=== PATIENT | male | born 1955 | race Caucasian/White ===

== ENCOUNTER → 2019-09-11 09:09 | Outpatient (BNVA) | payer BC, SELFPAY | PROVIDERS: Referring Provider Nurse Practitioner Family; Visit Provider Otolaryngology | DX: H90.A12 Conductive hearing loss, unilateral, left ear with restricted hearing on the contralateral side (principal); H66.92 Otitis media, unspecified, left ear; H65.02 Acute serous otitis media, left ear; J34.2 Deviated nasal septum | CPT/HCPCS: 96372; 99214 ==

== ENCOUNTER 2019-09-19 06:35 | Outpatient (REF) | payer BC, SELFPAY ==
[2019-09-19 09:41] LABS: Estmated Average Glucose 148; Hemoglobin A1C 6.8 % (4.0-6.0)
[2019-09-19 11:09] LABS: Chol HDL Ratio 4.32 mg/dL (1.0-5.00); Cholesterol 216 mg/dL (0-200); Glucose 116 mg/dL (65-115); HDL Cholesterol 50 mg/dL (60-100); LDL Cholesterol Calculated 143 mg/dL (50-129); LDL HDL Ratio 2.86 RATIO (0.00-3.22); Triglycerides 113 mg/dL (0-150)
== END 2019-09-19 06:36 | disposition home or self-care (01) ==
LOC: LAB 06:35
PROVIDERS: Visit Provider Dermatology
DX: Z01.89 Encounter for other specified special examinations (principal)
CPT/HCPCS: 80061; 82947; 83036

== ENCOUNTER 2021-11-25 09:31 | Outpatient (CLI) | payer MEDICARE, SELFPAY ==
--- NOTE | 2021-11-25 09:54 | XR_ITS ---
WS: [id number] AP and lateral views of the neck, 11/25/2021 Clinical Data: THROAT IRRITATION Comparison: None. Findings: There is osteoarthritic change of the vertebral bodies C3-T1. The spurring is largest at C5-C6. The h ypopharynx and proximal trachea show no abnormalities. The hyoid bone and thyroid cartilage are waqar l. The soft tissues of the neck demonstrate minimal calcification in the region of the left carotid b ifurcation. The lung apices are normal. XR/XR soft tissue neck [id number] Impression: 1. Prominent osteoarthritic change especially at C5-C6. 2. No soft tissue masses or deformity of the hypopharynx or proximal trachea is seen.
== END 2021-11-25 09:32 | disposition home or self-care (01) ==
LOC: RAD 09:40
PROVIDERS: Visit Provider Nurse Practitioner Family
DX: R07.0 Pain in throat (principal)
CPT/HCPCS: 70360

== ENCOUNTER 2022-08-08 09:54 | Observation (INO) | payer MEDICARE, SELFPAY ==
[2022-08-08] VITALS (14 sets, daily range): BP systolic 119–173; BP diastolic 57–92; PULSE 56–88; RESP 13–30; TEMP 36.5–36.8; O2SAT 94–98; BMI 30.1
--- NOTE | 2022-08-08 10:17 | ECG_ITS ---
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 Measurements Intervals [place] Rate: 73 P: 37 MO: 134 QRS: 11 QRSD: 157 T: 260 QT: 376 QTc: 417 Interpretive Statements SINUS RHYTHM WITH FREQUENT VENTRICULAR PREMATURE COMPLEXES LEFT BUNDLE BRANCH BLOCK [120+ ms QRS DURATION, 80+ ms Q/S IN V1/V2, 85+ ms R IN I/aVL/V5/V6] INTERPRETATION BASED ON A DEFAULT AGE OF 40 YEARS No previous ECG available for comparison Electronically Signed On 08-08-2022 14:10:50 KEY MAKER by Errol Muir M.D. [email or web address] medical specialty hospital [facility].[employer]/store/NU/[id number] f
--- NOTE | 2022-08-08 11:22 | CT_ITS ---
WS: [id number] CT HEAD TECHNIQUE: Noncontrast CT of the head obtained from the skullbase to the vertex. CLINICAL INFORMATION: visual loss COMPARISON: None. DLP: 1153.[address] scans at [facility] use at least one of these dose optimization techniques: automated e xposure control; mA and/or kV adjustment per patient size (includes targeted exams where dose is matc hed to clinical indication); or iterative reconstruction. FINDINGS: No evidence of intracranial hemorrhage or mass effect. Ventricular system and basal cisterns are jenkins nt. Mild to moderate small vessel changes with mild to moderate parenchymal volume loss. No extra-ax ial fluid collections. No evidence of mass or mass effect. Mild cerebellar tonsillar ectopia. Normal 4th ventricle. Small amount of fluid in the LEFT maxillary sinus compatible with sinusitis. Mild mucosal thickening in the ethmoid air cells and LEFT maxillary sinus. Mild mucosal thickening LEFT mastoid tip. Normal p osterior nasopharynx. Normal parapharyngeal fat. CT/CT head wo con* [id number] IMPRESSION: 1. No evidence of intracranial hemorrhage or mass effect. 2. Mild small vessel changes. Moderate parenchymal volume loss. 3. LEFT maxillary sinusitis. 4. No acute intracranial findings.
--- NOTE | 2022-08-08 11:22 | XR_ITS ---
WS: [id number] Portable AP upright chest, 08/08/2022 Clinical Data: chest pain Comparison: None. Findings: No nodules, masses or effusions are seen. The heart is normal. The pulmonary vascularity is not increased. No pneumonia or pneumothorax is seen. The aortic arch and descending thoracic aorta s how tortuosity. Monitor leads are on the chest wall. XR/XR chest 1V portable [id number] Impression: Atherosclerosis.
--- NOTE | 2022-08-08 11:28 | W.ED.DIZZY ---
HPI - Dizziness General: Chief Complaint: Dizziness Stated Complaint: Dizzy, Vision blurring Time Seen by Provider: 08/08/22 11:07 History of Present Illness: HPI Narrative: Patient is a 66-year-old male who comes in with blurry vision that started this morning around 4 AM. Patient states he initially woke up with what he thought was heartburn. He describes a burning/dull ache in the left parasternal area of his chest radiating into his throat. He thought it was heartburn. That pain lasted a couple of hours. He took antacids with improvement. In association with this, he did have dizziness which he felt was a lightheaded near fainting sensation with associated visual loss. He states his vision became spotty, then rainbow in appearance and then became dark. The visual loss lasted about 2 hours. He continued to have the lightheadedness and shortness of breath for about 6 hours. He states currently he is pain-free. He describes what sounds like exertional angina and shortness of breath for the past 5 to 7 days with some exertional shortness of breath going back about 2 months. The patient does have a history of COPD, congestive heart failure, diabetes, hypertension, hyperlipidemia, previous pulmonary embolism and DVT. Patient is not a smoker currently but did smoke in the past. He takes a baby aspirin daily and is not currently anticoagulated. He states he had his last stress test about a year and a half ago. His last angiogram was about 8 years ago in [facility]. He denies having any stents or previous angioplasty. Associated symptoms: Reports chest pain and palpitations; Denies headache(s) Associated neuro symptoms: Deny numbness in extremities Review of Systems General: Reports: 10 or more systems reviewed and unremarkable except in HPI and below Eyes: Reports: change in vision and blurry vision Card: Reports: chest pain, palpitations, lightheadedness, dyspnea on exertion and orthopnea; Denies: edema or swelling of feet/ankles Musc: Denies: extremity pain or extremity swelling Neuro: Reports: dizziness; Denies: headache(s), numbness in extremities, weakness in extremities, sensory changes, lack of coordination, difficulty walking, vertigo or Slurred speech present [facility] ED PFSH: Medical History (Updated 08/08/22 @ 14:43 by Cherry Lanier MD) Acute serous otitis media of left ear Conductive hearing loss in left ear Deviated septum Family History Other Cancer Diabetes Social History Smoking and tobacco status: former smoker Alcohol intake: former Physical Exam Narrative: EXAM NARRATIVE: Well-developed well-nourished male in no acute distress Const: COMMON NORMALS: no acute distress and patient oriented x3 HENMT: COMMON NORMALS: normocephalic HEAD & SCALP: normal to inspection and normocephalic Eye: COMMON NORMALS: Equal, round and reactive pupils present and EOMs intact bilaterally PUPIL: Yes Equal, round and reactive pupils present Neck/C-Spine: COMMON NORMALS: no lymphadenopathy Resp: COMMON NORMALS: normal respiratory effort, No retractions and clear to auscultation bilaterally AUSCULTATION: clear to auscultation bilaterally Cardio: COMMON NORMALS: regular rate and regular rhythm; negative for No murmurs present (Cardio) RATE: regular rate RHYTHM: regular rhythm GI: COMMON NORMALS: Normal to inspection, nondistended, normoactive bowel sounds present, Soft to palpation and non-tender PALPATION: Yes Soft to palpation Extremity: OTHER: No swelling or edema. Calves are nontender. Negative Homans bilaterally Neuro: COMMON NORMALS: patient oriented x3, CN's II-XII intact bilaterally, moves all extremities, no focal motor deficits and no sensory deficits noted Skin: OTHER: Venous stasis changes of the skin of the lower extremities bilaterally Course Reevaluation(s): Reevaluation #1: patient remains asymptomatic. Discussed test results with the patient. Discussed need for the patient to be admitted. Patient is in agreement. Consultations: Consultation #1: Discussed with the hospitalist for admission Time: 15:49 Vital Signs: Vital signs: Vital Signs Temperature 97.7 F 08/08/22 10:01 Pulse Rate 66 08/08/22 15:00 Respiratory Rate 18 08/08/22 15:00 Blood Pressure 133/57 08/08/22 15:00 Pulse Oximetry 95 08/08/22 15:00 Oxygen Delivery Me thod 08/08/22 15:00 MDM - Dizziness Medical Decision Making 66-year-old male with a history of diabetes, hypertension, hyperlipidemia who presents with shortness of breath with exertion as well as now onset of chest pain. Patient is afebrile. He does have a left bundle branch block and frequent PVCs on his EKG. I have no old KG's for comparison. He is pain-free upon arrival. Today he had a near syncopal episode with associated visual changes. Is been having shortness of breath and chest pain with exertion which now is occurring at rest. Given his age, his multitude of risk factors, I feel the patient needs to be admitted for a cardiac work-up. He does have a leukocytosis today with a white blood cell count of 15.5. Hemoglobin stable at 15.9. Sodium is 135, potassium 4.2, chloride 98, CO2 is 26. Does have a d dimer that is elevated at 2.25. CT arteriogram of the chest has been obtained. Glucose is 124. BUN and creatinine are normal. BNP is elevated at 287. His initial troponin is 12. Repeat 2-hour troponin is 12.62. He is COVID-negative as well as influenza negative. His chest x-ray shows no acute findings. On his CT arteriogram of the chest, he has no pulmonary embolism but he does have a right upper lobe infiltrate which certainly could be contributing to his symptoms but still of concern is the exertional chest pain or shortness of breath that he has been having over the past month. Feel the patient needs admission for cardiac work-up and will discuss with the hospitalist. Differential Diagnosis Likely cerebrovascular accident (angina, MN, PE, GERD, pneumonia) Lab Data 08/08/22 11:47 08/08/22 11:47 Radiology Impressions Chest X-Ray 08/08/22 11:22 Impression: Atherosclerosis. Head CT 08/08/22 11:22 IMPRESSION: 1. No evidence of intracranial hemorrhage or mass effect. 2. Mild small vessel changes. Moderate parenchymal volume loss. 3. LEFT maxillary sinusitis. 4. No acute intracranial findings. Chest CTA 08/08/22 12:35 IMPRESSION: 1. Proximal main pulmonary arteries are normal. No filling defects. No evidence of pulmonary embolus. 2. Patchy airspace infiltrates in RIGHT upper lobe about the RIGHT hilum consistent with pneumonia. 3. Small esophageal hiatal hernia. 4. Cardiomegaly. 5. Cholecystectomy. 6. Slightly ectatic aortic arch measuring 3.7 CM. 7. No other acute findings. Laboratory Results WBC 15.5 10^3/uL (4.0-10.0) H 08/08/22 11:47 RBC 4.96 10^6/uL (4.1-5.3) 08/08/22 11:47 Hgb 15.9 g/dL (11.7-16.6) 08/08/22 11:47 Hct 46.6 % (42.0-52.0) 08/08/22 11:47 MCV 94.0 fl (80-94) 08/08/22 11:47 MCH 32.1 pg (28.0-34.0) 08/08/22 11:47 MCHC 34.1 g/dL (30.0-36.0) 08/08/22 11:47 RDW 13.5 % (12.1-15.1) 08/08/22 11:47 Plt Count 143 10^3/cmm (130-400) 08/08/22 11:47 MPV 10.6 fL (7.4-10.4) H 08/08/22 11:47 Neut % (Auto) 85.1 % 08/08/22 11:47 Lymph % (Auto) 6.7 % 08/08/22 11:47 Grant % (Auto) 7.1 % 08/08/22 11:47 Eos % (Auto) 0.4 % 08/08/22 11:47 Baso % (Auto) 0.3 % 08/08/22 11:47 Neut # (Auto) 13.17 10^3/uL (1.8-7.7) H 08/08/22 11:47 Lymph # (Auto) 1.0 10^3/uL (0.8-4.8) 08/08/22 11:47 Grant # (Auto) 1.1 10^3/uL (0.2-0.9) H 08/08/22 11:47 Eos # (Auto) 0.1 10^3/uL (0.0-0.8) 08/08/22 11:47 Baso # (Auto) 0.0 10^3/uL (0.0-0.1) 08/08/22 11:47 Nucleated RBC % (auto) 0 % 08/08/22 11:47 Nucleated RBCs # 0.0 /100WBC 08/08/22 11:47 D-Dimer 2.25 ug/mIFEU (0-0.59) H 08/08/22 11:47 Sodium 135 mmol/L (136-145) L 08/08/22 11:47 Potassium 4.2 mmol/L (3.5-5.1) 08/08/22 11:47 Chloride 98 mmol/L (98-107) 08/08/22 11:47 Carbon Dioxide 26 mmol/L (22-29) 08/08/22 11:47 Anion Gap 15.2 (5-19) 08/08/22 11:47 BUN 17 mg/dL (8-23) 08/08/22 11:47 Creatinine 0.7 mg/dL (0.7-1.2) 08/08/22 11:47 GFR Calculation 112.5 mL/min (90-130) 08/08/22 11:47 Glucose 106 mg/dL (65-115) 08/08/22 11:47 POC Glucose 124 mg/dL (70-110) H 08/08/22 12:09 Calculated Osmolality 282 mOsm/kg (285-295) L 08/08/22 11:47 Calcium 8.9 mg/dL (8.5-10.5) 08/08/22 11:47 Magnesium 1.9 mg/dL (1.7-2.3) 08/08/22 11:47 Total Bilirubin 0.7 mg/dL (0.15-1.2) 08/08/22 11:47 AST 23 U/L (0-40) 08/08/22 11:47 ALT 26 U/L (0-41) 08/08/22 11:47 Alkaline Phosphatase 63 U/L (40-130) 08/08/22 11:47 Troponin T Baseline 12 ng/L (0-15) 08/08/22 11:47 Troponin T 120 Minute 12.62 ng/L (0-15) 08/08/22 13:55 Delta Troponin T 0.62 ABS# (0-10) 08/08/22 13:55 NT-Pro-B Natriuret Pep 287 pg/mL (0-125) H 08/08/22 11:47 Total Protein 6.9 g/dL (6.6-8.7) 08/08/22 11:47 Albumin 4.2 g/dL (3.5-5.2) 08/08/22 11:47 Globulin 2.7 g/dL (1.3-4.6) 08/08/22 11:47 Lipase 43 U/L (13-60) 08/08/22 11:47 TSH 1.02 uIU/mL (0.27-4.20) 08/08/22 11:47 Urine Color Light yellow (Yellow) 08/08/22 11:35 Urine Appearance Clear (CLEAR) 08/08/22 11:35 Urine pH 5 (5-7) 08/08/22 11:35 Ur Specific [place] 1.015 (1.005-1.030) 08/08/22 11:35 Urine Protein Neg (Negative) 08/08/22 11:35 Urine Glucose (UA) Norm (Normal) 08/08/22 11:35 Urine Ketones Negative (Negative) 08/08/22 11:35 Urine Blood 2+ (Negative) H 08/08/22 11:35 Urine Nitrate Negative (Negative) 08/08/22 11:35 Urine Bilirubin Neg (Negative) 08/08/22 11:35 Urine Urobilinogen Norm mg/dL (Negative) 08/08/22 11:35 Ur Leukocyte Esterase Negative (Negative) 08/08/22 11:35 Urine RBC 0-4 /hpf (0-2) H 08/08/22 11:35 Urine WBC None /hpf (0-5) 08/08/22 11:35 Ur Squamous Epith Cells 0-4 /hpf (0-5) H 08/08/22 11:35 Amorphous Sediment Not Reportable 08/08/22 11:35 Urine Bacteria Trace /hpf (NONE) 08/08/22 11:35 Coronavirus 229E (PCR) Not detected (NOT DETECT) 08/08/22 11:35 Human Metapneumovir PCR Not detected (NOT DETECT) 08/08/22 14:03 Influenza Type A Ag negative (Negative) 08/08/22 11:35 Influenza Type B Ag negative (Negative) 08/08/22 11:35 Entero/Rhino (PCR) Detected (NOT DETECT) A 08/08/22 14:03 SARS-CoV-2 (PCR) Not detected (NOT DETECT) 08/08/22 11:35 EKG Data EKG 1: I personally reviewed and interpreted this EKG as follows: Interpretation: Normal sinus rhythm, rate of 73, left bundle branch block, frequent PVCs Discharge Plan Discharge Patient Disposition: Admitted As Inpatient Clinical Impression: Chest pain, ALVARADO (dyspnea on exertion), Pneumonia, Near syncope, Blurred vision Condition: Stable Coding Level of Care Code ED Analytical Statistician for Chg Fwd Exam Comprehensive Medical Decision Making High Complexity
[2022-08-08] MEDS: aspirin 81 mg Chew Tablet 324 MG PO (11:29)
[2022-08-08 12:05] LABS: Influenza A by IFA negative (Negative); Influenza B by IFA negative (Negative)
[2022-08-08 12:12] LABS: Basophils % 0.3 %; Eosinophils # 0.1 10^3/uL (0.0-0.8); Eosinophils % 0.4 %; Hematocrit 46.6 % (42.0-52.0); Hemoglobin 15.9 g/dL (11.7-16.6); Lymphocytes % 6.7 %; Mean Corpuscular HGB Conc 34.1 g/dL (30.0-36.0); Mean Corpuscular Hemoglobin 32.1 pg (28.0-34.0); Mean Platelet Volume 10.6 fL (7.4-10.4); Monocytes # 1.1 10^3/uL (0.2-0.9); Monocytes % 7.1 %; Neutrophils # 13.17 10^3/uL (1.8-7.7); Neutrophils % 85.1 %; Nucleated Red Blood Cells % 0 %; Platelet Count 143 10^3/cmm (130-400); Red Blood Count 4.96 10^6/uL (4.1-5.3); Red Cell Distribution Width 13.5 % (12.1-15.1); White Blood Count 15.5 10^3/uL (4.0-10.0)
[2022-08-08 12:13] LABS: Glucose Point of Care 124 mg/dL (70-110)
[2022-08-08 12:26] LABS: D Dimer 2.25 ug/mIFEU (0-0.59)
[2022-08-08 12:31] LABS: Add Urine Microscopic? YES; Bilirubin Urine Neg (Negative); Blood Urine 2+ (Negative); Glucose Urine UA Norm (Normal); Ketones Urine Negative (Negative); Leukocyte Esterase Urine Negative (Negative); Nitrate Urine Negative (Negative); Protein Urine Neg (Negative); RBC Urine 0-4 /hpf (0-2); Specific Gravity, Urine 1.015 (1.005-1.030); Urine Appearance Clear (CLEAR); Urine Color Light yellow (Yellow); Urobilinogen Urine Norm (Negative); pH Urine 5 (5-7)
[2022-08-08 12:32] LABS: Add Urine Culture? No; Bacteria Urine TRACE /hpf; Squamous Epithelial Cell Urine 0-4 /hpf (0-5)
--- NOTE | 2022-08-08 12:35 | CT_ITS ---
WS: [id number] CTA OF THE CHEST WITH PULMONARY EMBOLISM PROTOCOL TECHNIQUE: High-resolution contrast enhanced CTA of the chest with coronal and sagittal reformatted i lailas with pulmonary embolism protocol. MIP images are also reviewed. CLINICAL INFORMATION: chest pain elevated d dimer COMPARISON: None. DLP: 420.[address] scans at [facility] use at least one of these dose optimization techniques: automated e xposure control; mA and/or kV adjustment per patient size (includes targeted exams where dose is matc hed to clinical indication); or iterative reconstruction. FINDINGS: Proximal main pulmonary arteries are normal. Normal segmental and subsegmental pulmonary arteries. No filling defects to indicate pulmonary embolus. Segmental and subsegmental pulmonary arteries are pat ent.Chronic emphysematous changes. Bibasilar atelectasis. Patchy airspace infiltrates in the RIGHT up per lobe about the RIGHT hilum. Recommend correlation for pneumonia. No focal consolidation. Ectatic aortic arch measuring 3.6 cm. Normal caliber ascending and descending thoracic aorta. Small e sophageal hiatal hernia. Coronary calcification. Prominent calcified paratracheal lymph node. No axil trae lymphadenopathy. Partially visualized RIGHT renal cyst measuring 3.8 cm. Adrenal glands are normal. Cholecystectomy cl ips. Incidental fat-containing Bochdalek hernia RIGHT lower lobe posteriorly. CT/CT angio chest PE protcl [id number] IMPRESSION: 1. Proximal main pulmonary arteries are normal. No filling defects. No evidenc e of pulmonary embolus. 2. Patchy airspace infiltrates in RIGHT upper lobe about the RIGHT hilum consi stent with pneumonia. 3. Small esophageal hiatal hernia. 4. Cardiomegaly. 5. Cholecystectomy. 6. Slightly ectatic aortic arch measuring 3.7 CM. 7. No other acute findings.
[2022-08-08 12:40] LABS: Alanine Aminotransferase 26 U/L (0-41); Albumin Level 4.2 g/dL (3.5-5.2); Alkaline Phosphatase 63 U/L (40-130); Anion Gap 15.2 (5-19); Aspartate Amino Transferase 23 U/L (0-40); Blood Urea Nitrogen 17 mg/dL (8-23); Calcium 8.9 mg/dL (8.5-10.5); Carbon Dioxide 26 mmol/L (22-29); Chloride 98 mmol/L (98-107); Creatinine Clr Calc Pharmacy 103.7989; Globulin 2.7 g/dL (1.3-4.6); Glomerular Filtration Rate 112.5 mL/min (90-130); Glucose 106 mg/dL (65-115); Lipase 43 U/L (13-60); Magnesium 1.9 mg/dL (1.7-2.3); NT Pro B Type Natriuretic Pept 287 pg/mL (0-125); Osmolality Calculated 282 mOsm/kg (285-295); Potassium 4.2 mmol/L (3.5-5.1); Sodium 135 mmol/L (136-145); Thyroid Stimulating Hormone 1.02 uIU/mL (0.27-4.20); Total Bilirubin 0.7 mg/dL (0.15-1.2); Total Protein 6.9 g/dL (6.6-8.7)
[2022-08-08 13:10] LABS: Troponin(5th) Baseline 12 ng/L (0-15)
[2022-08-08] MEDS: iohexol 350 mg/mL 500 mL Btl (per mL) IV (13:15)
[2022-08-08 13:32] LABS: Adenovirus Not Detected (NOT DETECT); Chlamydia Pneumoniae Not Detected (NOT DETECT); Coronavirus 229E,HKU1,NL63,OC4 Not Detected (NOT DETECT); Human Metapneumovirus Not Detected (NOT DETECT); Human Rhinovirus/Enterovirus Detected (NOT DETECT); Influenza A Not Detected (NOT DETECT); Influenza A H1 Not Detected (NOT DETECT); Influenza A H1-2009 Not Detected (NOT DETECT); Influenza A H3 Not Detected (NOT DETECT); Influenza B Not Detected (NOT DETECT); Mycoplasma Pneumoniae Not Detected (NOT DETECT); Parainfluenza Virus Type 1 Not Detected (NOT DETECT); Parainfluenza Virus Type 2 Not Detected (NOT DETECT); Parainfluenza Virus Type 3 Not Detected (NOT DETECT); Parainfluenza Virus Type 4 Not Detected (NOT DETECT); Respiratory Syncytial Virus A Not Detected (NOT DETECT); Respiratory Syncytial Virus B Not Detected (NOT DETECT); SARS-COV-2 Not Detected (NOT DETECT)
[2022-08-08 14:04] LABS: Human Metapneumovirus Not Detected (NOT DETECT); Human Rhinovirus/Enterovirus Detected (NOT DETECT); Results from Genmark
[2022-08-08 14:22] LABS: Troponin 5 2HR 12.62 ng/L (0-15)
[2022-08-08 14:33] LABS: Troponin 5 2HR Delta 0.62 ABS# (0-10)
--- NOTE | 2022-08-08 14:54 | ECG_ITS ---
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 Measurements Intervals [place] Rate: 68 P: 46 NE: 174 QRS: -25 QRSD: 153 T: 139 QT: 421 QTc: 449 Interpretive Statements SINUS RHYTHM LEFT BUNDLE BRANCH BLOCK [120+ ms QRS DURATION, 80+ ms Q/S IN V1/V2, 85+ ms R IN I/aVL/V5/V6] Compared to ECG 08/08/2022 10:17:25 Ventricular premature complex(es) no longer present Electronically Signed On 08-08-2022 16:16:27 SALES ADMINISTRATION MANAGER by Errol Muir M.D. [email or web address] [facility]/store/OM/[id number]
--- NOTE | 2022-08-08 15:58 | PM.HP ---
Providers/Chief Complaint Primary Care Provider: Meena Ndiaye MD Chief Complaint: Dizzy, Vision blurring History of Present Illness Modesto Alberto is a 66 year old male with history of hypertension, diabetes, coronary disease, presented today with chief complaint of blurry vision and burning sensation. Patient is stating that he woke up with burning sensation which he ignored initially, he tried to read a book at arms length but could not because of blurry vision he removed his glasses which resolved issue, he has been having chest pain on left side at rest and on exertion. And he is also endorsing dizziness after taking few steps. No history of fever, diarrhea, vomiting, nausea, hip pain experiencing productive cough for the last 4 to 5 days, green sputum production. He has not noticed any fever. Patient stating few months ago he had an appointment with his applications support lead retinal exam was fine. In the ER he has high D-dimer, CTA ruled out PE troponins not significantly high, hemodynamically stable, doing well on room air I will give him ceftriaxone azithromycin for pneumonia evident on the CT chest. Will request carotid Doppler and echo and stress test in the morning Review of Systems Const: Reports: chills; Denies: fever(s) Eyes: Reports: change in vision and blurry vision ENMT: Denies: throat pain Card: Reports: chest pain Resp: Denies: dyspnea GI: Reports: abdominal pain : Denies: flank pain Musc: Denies: neck pain Skin/Breast: Denies: rash Neuro: Denies: headache(s) Psych: Denies: anxiety Endo: Denies: polyuria Geoff/Lymph: Denies: easy bruising All/Imm: Denies: urticaria Medications/Allergies Home Medications Medication Instructions Recorded Confirmed Last Taken Type amlodipine 5 mg tablet 5 mg PO DAILY 09/11/19 08/08/22 08/08/22 History baclofen 20 mg tablet 20 mg PO DAILY PRN Pain 09/11/19 08/08/22 Unknown History carvedilol 6.25 mg tablet 6.25 mg PO BID 09/11/19 08/08/22 08/08/22 History furosemide 20 mg tablet 20 mg PO QAM 09/11/19 08/08/22 08/08/22 History metformin 500 mg tablet 500 mg PO BID 09/11/19 08/08/22 08/08/22 History lisinopril 30 mg tablet 30 mg PO DAILY 08/08/22 08/08/22 08/08/22 History lovastatin 20 mg tablet 20 mg PO DAILY 08/08/22 08/08/22 08/07/22 History Allergies Allergy/AdvReac Type Severity Reaction Status Date / Time No Known Allergies Allergy Verified 08/08/22 10:01 PFSH Acute PFSH: Medical History (Updated 08/08/22 @ 19:44 by Leigha French MD) Acute serous otitis media of left ear CHF (congestive heart failure), NYHA class I Conductive hearing loss in left ear Deviated septum HTN (hypertension) PVD (peripheral vascular disease) Surgical History (Updated 08/08/22 @ 19:44 by Leigha French MD) H/O hernia repair History of cholecystectomy Family History Other Cancer Diabetes Social History Smoking and tobacco status: former smoker Alcohol intake: former Vitals/I&O/Wt Last Vital Signs Temp 97.7 F 08/08/22 10:01 Pulse 66 08/08/22 15:00 Resp 18 08/08/22 15:00 BP 133/57 08/08/22 15:00 Pulse Ox 95 08/08/22 15:00 O2 Del Method 08/08/22 15:00 Weight last 48 hrs Weight 95.254 kg Physical Exam Narrative: Patient is awake and alert Nonfocal neuro exam S1, S2 No blurred vision at the time of my evaluation Doing well on room air Abdomen soft No active wheezing crackles or wheezing Abdomen soft EOMI, PERRLA Pleasant and cooperative Data 08/08/22 11:47 08/08/22 11:47 A&P Assessment and plan (1) Chest pain: (2) Pneumonia: (3) Blurred vision: Plan Unstable angina Chest pain is not reproducible Will request echo and stress test in the morning Blurry vision, dizziness Check B12 level, TSH, Carotid Doppler Does not have typical stroke related changes Would recommend outpatient retinal exam Check A1c level Community-acquired pneumonia Ceftriaxone azithromycin Not acquiring oxygen Sputum culture Cardiac diet Full code TURBINE MEASUREMENTS ENGINEER after midnight DVT prophylaxis on board Attestations Medical Necessity Statement*: Anticipate discharge within 48 hours Time Spent in Patient Care: 40 Coding Level of Care Code Acute Seismic Prospecting Observer Helper for Chg Fwd Diagnoses Chest pain R07.9 Pneumonia J18.9 Blurred vision H53.8
[2022-08-08 17:38] LABS: D Dimer 1.95 ug/mIFEU (0-0.59)
[2022-08-08 17:51] LABS: Troponin 5 6HR 12.25 ng/L (0-15)
[2022-08-08 18:10] LABS: Troponin 5 6HR Delta 0.25 ng/L (0-12)
--- NOTE | 2022-08-08 19:13 | ECG_ITS ---
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 Measurements Intervals [place] Rate: 61 P: 71 [place]: 167 QRS: -22 QRSD: 162 T: 225 QT: 430 QTc: 434 Interpretive Statements SINUS RHYTHM LEFT BUNDLE BRANCH BLOCK [120+ ms QRS DURATION, 80+ ms Q/S IN V1/V2, 85+ ms R IN I/aVL/V5/V6] Compared to ECG 08/08/2022 14:54:11 No significant changes Electronically Signed On 08-09-2022 16:56:07 PRODUCTION TRAINER by Lainey Butcher M.D. [id number]
--- NOTE | 2022-08-08 19:47 | USCV_ITS ---
Alvarezbarney Modesto Age: 66 Gender: M : 1955 Exam Date: 08/08/2022 21:58 Ordering Phys: Leigha French MD Technologist: SHERITA Exam Location: [facility] [place] Indication: bilateral blurred vision episodes over the last few months. DM2. Long smoking history, quite 2006. BP: 140 / 70 HR: 57 Rhythm: Sinus Technical Quality: Adequate MEASUREMENTS (Male / Female) Normal Values 2D ECHO LV Diastolic Diameter PLAX 3.2 cm 4.2 - 5.9 / 3.9 - 5.3 cm LV Systolic Diameter PLAX 2.1 cm IVS Diastolic Thickness 2.3 cm 0.6 - 1.0 / 0.6 - 0.9 cm IVS Systolic Thickness 3.0 cm LVPW Diastolic Thickness 1.4 cm 0.6 - 1.0 / 0.6 - 0.9 cm LVPW Systolic Thickness 2.0 cm LVOT Diameter 2.1 cm LV Ejection Fraction 2D Teich 64.4 % LV Ejection Fraction MOD 2C 55.7 % LV Ejection Fraction 2C AL 56.2 % LA Diameter 3.5 cm LA Width 3.0 cm LA Height 4.8 cm RA Width 3.0 cm RA Height 4.7 cm Aorta at Sinotubular Diameter 3.4 cm IVC Diameter 2.0 cm M-MODE Aortic Annulus Diameter 3.4 cm LA Ao Ratio MM 0.9 MV E Point Septal Separation 0.6 cm DOPPLER AV Peak Velocity 165.0 cm/s LVOT Peak Velocity 103.0 cm/s AV Area Cont Eq vti 2.2 cm squared AV Area Cont Eq pk 2.2 cm squared MV Area PHT 2.7 cm squared Mitral E to A Ratio 0.7 MV E' Velocity 48.0 cm/s Mitral E to MV E' Ratio 11.1 Mitral E to LV E' Lateral Ratio 8.8 Mitral E to LV E' Septal Ratio 15.3 TR Peak Velocity 239.3 cm/s TR Peak Gradient 22.9 mmHg TV Peak E Velocity 77.0 cm/s Right Atrial Pressure 5.0 mmHg Pulmonary Artery Systolic Pressu 27.9 mmHg PV Peak Velocity 124.0 cm/s RV Acceleration Time 0.1 s RV Ejection Time 0.4 s RV AcT/ET 0.3 FINDINGS Left Ventricle Normal LV size with a borderline low ejection fraction of around 50 %.abnormal septal motion consistent with conduction abnormality. Mild left ventricular hypertrophy. Grade I/IV diastolic dysfunction (abnormal relaxation filling pattern), normal to mildly elevated filling pressures. Right Ventricle The right ventricle is normal in size and function. Right Atrium The right atrium is normal in size. Left Atrium The left atrium is normal in size. Mitral Valve Mild-moderate mitral valve regurgitation. Aortic Valve Thickened aortic valve. Trace aortic valve regurgitation. Tricuspid Valve Trace to mild tricuspid valve regurgitation. Estimated pulmonary artery peak systolic pressure 28 mmHg Pulmonic Valve Thickened pulmonic valve. Mild pulmonary valve regurgitation. Pericardium Normal pericardium without effusion. Aorta Normal ascending aorta dimension. IVC Normal inferior vena cava. CONCLUSIONS Normal LV size with a borderline low ejection fraction of around 50 %. Abnormal septal motion consistent with conduction abnormality. Mild left ventricular hypertrophy. Grade I/IV diastolic dysfunction (abnormal relaxation filling pattern), normal to mildly elevated filling pressures. Mild-moderate mitral valve regurgitation. Thickened aortic valve. Trace aortic valve regurgitation. Trace to mild tricuspid valve regurgitation. Estimated pulmonary artery peak systolic pressure 28 mmHg. Thickened pulmonic valve. Mild pulmonary valve regurgitation. There is no pericardial effusion. There are no intracardiac masses. Compared to the study from 08/28/2017, there may not be a significant change Dr Pat Alfonso MD FAC (Electronically Signed) Final Date: 09 August 2022 11:32 S
--- NOTE | 2022-08-08 19:47 | USCV_ITS ---
Mod[place] Alberto Age: 66 Gender: M : 1955 Exam Date: 08/08/2022 21:27 Ordering Phys: Leigha French MD Technologist: SHERITA Exam Location: [facility] – [place] Indication: bilateral blurred visions episodes over the last few months. DM2. Long smoking history, but quit 2006. Risk Factors: bilateral blurred visions episodes over the last few months. DM2. Long smoking history, but quit 2006. Previous Vascular Surgery: None Right Brachial BP: / Left Brachial BP: / Right Left Velocity (cm/s) Spectral Plaque Velocity (cm/s) Spectral Plaque Syst/Diast Broadening Syst/Diast Broadening 86.00/ 9.90 None None Prox CCA 135.40/ 19.70 None None 109.20/14.30 Min None Mid CCA 62.40 / 10.30 Min None 62.80/ 11.00 Min None Distal CCA 69.20 / 17.10 Min None 49.70/ 12.40 Min Homo Prox ICA 62.40 / 15.40 Min Homo 52.80/ 15.50 Min None Mid ICA 94.80 / 31.60 Min None 63.70/ 22.50 Min None Distal ICA 84.60 / 29.10 Min None 64.90 Min Homo ECA 72.60 Min Homo 0.58 ICA/CCA 0.70 Antegrade Vertebral Antegrade 40.40/ 12.40 cm/s 40.40/ 12.40 cm/s Tri Subclavian Tri 112.5 78.50 0 CONCLUSIONS Right ICA stenosis <50%. Mild atheromatous plaque right carotid bulb/ICA. Left ICA stenosis <50%. Mild atheromatous plaque left carotid bulb/ICA. Normal antegrade Doppler flow noted in the right vertebral artery. Normal antegrade Doppler flow noted in the left vertebral artery. Greg Rand MD (Electronically Signed) Final Date: 09 August 2022 09:36 S
--- NOTE | 2022-08-08 19:47 | ECG_ITS ---
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 Interpretive Statements NAME OF STUDY: LEXISCAN SESTAMIBI STRESS TEST INDICATION: UA, PROCEDURE: At the baseline, the EKG revealed normal sinus rhythm with a left bundle branch block pattern.. The baseline heart was bpm with a blood pressue of mm of Hg Lexiscan was infused over a period of 20 seconds. A total of 0.4 milligrams of Lexiscan was infused. The stress phase was continued for a total of 5 minutes. Heart rate at the end of the stress phase was 87 bpm with a blood pressure 160/94 mm of Hg. The EKG at the peak infusion revealed no significant changes. Sestamibi was injected 20 seconds after the Lexiscan infusion. Heart rate at the end of the recovery phase was 85 bpm with a blood pressure of 150/89 mm of Hg. CONCLUSION: 1. No significant EKG changes with the LexiScan infusion 2. No LexiScan induced chest pain or cardiac arrhythmia 3. Normal blood pressure and heart rate response 4. Sestamibi/sestamibi perfusion scan pending; see separate report. Electronically Signed On 08-10-2022 18:04:54 FINISHING RANGE SUPERVISOR by Pat Alfonso M.D. [id number]
[2022-08-08 20:33] LABS: Thyroid Stimulating Hormone 1.56 uIU/mL (0.27-4.20)
[2022-08-08 20:38] LABS: Estmated Average Glucose 131; Hemoglobin A1C 6.2 % (4.0-6.0)
[2022-08-08] MEDS: azithromycin 250 mg Tablet 500 MG PO (22:36)
[2022-08-08] MEDS: cefTRIAXone 1,000 MG in sodium chloride 0.9% (plus) 50 ML 100 MG IV (22:37)
[2022-08-08] MEDS: enoxaparin 40 mg/0.4 mL Syringe SUBCUT (22:37)
[2022-08-09 01:19] LABS: Vitamin B12 337 pg/mL (232-1245)
[2022-08-09 04:00] VITALS: BP 135/77; PULSE 53; RESP 14; TEMP 37.1; O2SAT 97
[2022-08-09 04:34] LABS: Basophils % 0.2 %; Eosinophils # 0.1 10^3/uL (0.0-0.8); Eosinophils % 1.3 %; Hematocrit 42.2 % (42.0-52.0); Hemoglobin 14.1 g/dL (11.7-16.6); Lymphocytes # 1.6 10^3/uL (0.8-4.8); Lymphocytes % 18.7 %; Mean Corpuscular HGB Conc 33.4 g/dL (30.0-36.0); Mean Corpuscular Hemoglobin 31.4 pg (28.0-34.0); Mean Platelet Volume 10.8 fL (7.4-10.4); Monocytes # 0.8 10^3/uL (0.2-0.9); Monocytes % 8.8 %; Neutrophils # 6.03 10^3/uL (1.8-7.7); Neutrophils % 70.8 %; Nucleated Red Blood Cells % 0 %; Platelet Count 133 10^3/cmm (130-400); Red Blood Count 4.49 10^6/uL (4.1-5.3); Red Cell Distribution Width 13.7 % (12.1-15.1); White Blood Count 8.5 10^3/uL (4.0-10.0)
[2022-08-09 05:02] LABS: Anion Gap 11.9 (5-19); Blood Urea Nitrogen 15 mg/dL (8-23); Calcium 8.9 mg/dL (8.5-10.5); Carbon Dioxide 28 mmol/L (22-29); Chloride 102 mmol/L (98-107); Creatinine Clr Calc Pharmacy 103.7989; Glomerular Filtration Rate 96.4 mL/min (90-130); Glucose 111 mg/dL (65-115); Osmolality Calculated 288 mOsm/kg (285-295); Phosphorus 3.5 mg/dL (2.5-4.5); Potassium 3.9 mmol/L (3.5-5.1); Sodium 138 mmol/L (136-145)
--- NOTE | 2022-08-09 05:21 | ECG_ITS ---
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 Measurements Intervals [place] Rate: 54 P: 60 WA: 180 QRS: -6 QRSD: 157 T: 190 QT: 452 QTc: 429 Interpretive Statements SINUS BRADYCARDIA LEFT BUNDLE BRANCH BLOCK [120+ ms QRS DURATION, 80+ ms Q/S IN V1/V2, 85+ ms R IN I/aVL/V5/V6] Compared to ECG 08/08/2022 19:13:31 Sinus rhythm no longer present Electronically Signed On 08-09-2022 16:53:33 BUS REPAIR SUPERVISOR by Lainey Butcher M.D. [email or web address] Globalegrow E-Commerceking[facility] [place].[employer]/store/[id number]
[2022-08-09 05:40] VITALS: PULSE 52
[2022-08-09 07:40] VITALS: BP 150/89; PULSE 80
[2022-08-09] MEDS: regadenoson 0.4 Mg/5 ml Syringe IVP (07:54)
[2022-08-09] MEDS: lisinopril 20 mg Tablet PO (08:35)
[2022-08-09] MEDS: amlodipine 5 mg Tablet PO (08:35)
[2022-08-09 08:36] VITALS: RESP 18
[2022-08-09] MEDS: aspirin 81 mg EC Tablet PO (08:36)
[2022-08-09] MEDS: atorvastatin 40 mg Tablet 80 MG PO (08:36)
[2022-08-09] MEDS: morphine IR 15 mg Tablet PO (08:36)
--- NOTE | 2022-08-09 11:43 | PM.DCS ---
Discharge Providers Date of Admission: 08/08/22 15:46 Date of Discharge: August 09, 2022 Attending Provider at Admission: Leigha French MD Attending Provider at Discharge: Leigha French MD Primary Care Provider: Meena Ndiaye MD Diagnoses at Discharge Discharge Diagnosis (1) Chest pain: Status: Acute (2) Pneumonia: Status: Acute (3) Blurred vision: Status: Acute Reason for Visit Reason for Visit: Dizzy, Vision blurring Hospital Course Hospital Course 66-year male who presented to the hospital for evaluation of dyspnea on exertion, dizziness, blurry vision. No signs of stroke were identified, carotid Doppler did not show any active stenosis, stress test showed reduced EF I did speak with Dr. Alfonso regarding his stress test, he recommended following up with echo, echo did not show significant reduction in EF however it is showing septal wall motion abnormality related to left bundle branch block, patient never complained of any chest pain during hospitalization, troponins flat, no signs of ischemia infarction on the EKG. Dr. Alfonso has recommended elective angiogram outpatient. I have added aspirin, Plavix high-dose statins, lisinopril for now along antibiotics for pneumonia. Patient was diagnosed with pneumonia during this hospitalization. I have recommended rectal exam for his blurry vision. I have also given him a work note. I have discontinued AV moon blocking agent due to left bundle branch block, optimized his antihypertensive regimen. He has normal TSH and B12. No signs of PE. Physical Exam Narrative: Patient is standing at the bedside, no active complaints Nonfocal neuro exam S1, S2 Doing well on room air Abdomen soft No active wheezing crackles or wheezing Abdomen soft EOMI, PERRLA His friend is also at the bedside Discharge Data Studies Completed and Pending Completed Studies During Hospitalization Category Date Time Status CT angio chest PE protcl [id number] Stat Cat Scan 08/08/22 12:[address] head wo con* [id number] Stat Cat Scan 08/08/22 11:22 Completed Sestamibi Stress Test Request Routine Exams 08/08/22 19:47 Draft XR chest 1V portable [id number] Stat Exams 08/08/22 11:22 Completed NM farrukh perf SPECT r/s* [id number] Routine Nuc Med 08/09/22 19:47 Completed CV carotid duplex BI* [id number] Routine Ultrasound 08/08/22 19:47 Completed CV. echo complete* [id number] Routine Ultrasound 08/08/22 19:47 Completed Radiology Impressions Chest X-Ray 08/08/22 11:22 Impression: Atherosclerosis. Head CT 08/08/22 11:22 IMPRESSION: 1. No evidence of intracranial hemorrhage or mass effect. 2. Mild small vessel changes. Moderate parenchymal volume loss. 3. LEFT maxillary sinusitis. 4. No acute intracranial findings. Chest CTA 08/08/22 12:35 IMPRESSION: 1. Proximal main pulmonary arteries are normal. No filling defects. No evidence of pulmonary embolus. 2. Patchy airspace infiltrates in RIGHT upper lobe about the RIGHT hilum consistent with pneumonia. 3. Small esophageal hiatal hernia. 4. Cardiomegaly. 5. Cholecystectomy. 6. Slightly ectatic aortic arch measuring 3.7 CM. 7. No other acute findings. Laboratory Results WBC 8.5 10^3/uL (4.0-10.0) 08/09/22 03:48 RBC 4.49 10^6/uL (4.1-5.3) 08/09/22 03:48 Hgb 14.1 g/dL (11.7-16.6) 08/09/22 03:48 Hct 42.2 % (42.0-52.0) 08/09/22 03:48 MCV 94.0 fl (80-94) 08/09/22 03:48 MCH 31.4 pg (28.0-34.0) 08/09/22 03:48 MCHC 33.4 g/dL (30.0-36.0) 08/09/22 03:48 RDW 13.7 % (12.1-15.1) 08/09/22 03:48 Plt Count 133 10^3/cmm (130-400) 08/09/22 03:48 MPV 10.8 fL (7.4-10.4) H 08/09/22 03:48 Neut % (Auto) 70.8 % 08/09/22 03:48 Lymph % (Auto) 18.7 % 08/09/22 03:48 [place] % (Auto) 8.8 % 08/09/22 03:48 Eos % (Auto) 1.3 % 08/09/22 03:48 Baso % (Auto) 0.2 % 08/09/22 03:48 Neut # (Auto) 6.03 10^3/uL (1.8-7.7) 08/09/22 03:48 Lymph # (Auto) 1.6 10^3/uL (0.8-4.8) 08/09/22 03:48 [place] # (Auto) 0.8 10^3/uL (0.2-0.9) 08/09/22 03:48 Eos # (Auto) 0.1 10^3/uL (0.0-0.8) 08/09/22 03:48 Baso # (Auto) 0.0 10^3/uL (0.0-0.1) 08/09/22 03:48 Nucleated RBC % (auto) 0 % 08/09/22 03:48 Nucleated RBCs # 0.0 /100WBC 08/09/22 03:48 D-Dimer 1.95 ug/mIFEU (0-0.59) H 08/08/22 17:20 Sodium 138 mmol/L (136-145) 08/09/22 03:48 Potassium 3.9 mmol/L (3.5-5.1) 08/09/22 03:48 Chloride 102 mmol/L (98-107) 08/09/22 03:48 Carbon Dioxide 28 mmol/L (22-29) 08/09/22 03:48 Anion Gap 11.9 (5-19) 08/09/22 03:48 BUN 15 mg/dL (8-23) 08/09/22 03:48 Creatinine 0.8 mg/dL (0.7-1.2) 08/09/22 03:48 GFR Calculation 96.4 mL/min (90-130) 08/09/22 03:48 Glucose 111 mg/dL (65-115) 08/09/22 03:48 POC Glucose 124 mg/dL (70-110) H 08/08/22 12:09 Estimat Average Glucose 131 08/08/22 11:47 Hemoglobin A1c 6.2 % (4.0-6.0) H 08/08/22 11:47 Calculated Osmolality 288 mOsm/kg (285-295) 08/09/22 03:48 Calcium 8.9 mg/dL (8.5-10.5) 08/09/22 03:48 Phosphorus 3.5 mg/dL (2.5-4.5) 08/09/22 03:48 Magnesium 2.0 mg/dL (1.7-2.3) 08/09/22 03:48 Total Bilirubin 0.7 mg/dL (0.15-1.2) 08/08/22 11:47 AST 23 U/L (0-40) 08/08/22 11:47 ALT 26 U/L (0-41) 08/08/22 11:47 Alkaline Phosphatase 63 U/L (40-130) 08/08/22 11:47 Troponin T Baseline 12 ng/L (0-15) 08/08/22 11:47 Troponin T 120 Minute 12.62 ng/L (0-15) 08/08/22 13:55 Delta Troponin T 0.62 ABS# (0-10) 08/08/22 13:55 Troponin T Hi Sens 6Hr 12.25 ng/L (0-15) 08/08/22 17:20 Troponin T Hi Sens 6Hr Delta 0.25 ng/L (0-12) 08/08/22 17:20 NT-Pro-B Natriuret Pep 287 pg/mL (0-125) H 08/08/22 11:47 Total Protein 6.9 g/dL (6.6-8.7) 08/08/22 11:47 Albumin 4.2 g/dL (3.5-5.2) 08/08/22 11:47 Globulin 2.7 g/dL (1.3-4.6) 08/08/22 11:47 Lipase 43 U/L (13-60) 08/08/22 11:47 Vitamin B12 337 pg/mL (232-1245) 08/08/22 17:20 TSH 1.56 uIU/mL (0.27-4.20) 08/08/22 17:20 Urine Color Light yellow (Yellow) 08/08/22 11:35 Urine Appearance Clear (CLEAR) 08/08/22 11:35 Urine pH 5 (5-7) 08/08/22 11:35 Ur Specific [place] 1.015 (1.005-1.030) 08/08/22 11:35 Urine Protein Neg (Negative) 08/08/22 11:35 Urine Glucose (UA) Norm (Normal) 08/08/22 11:35 Urine Ketones Negative (Negative) 08/08/22 11:35 Urine Blood 2+ (Negative) H 08/08/22 11:35 Urine Nitrate Negative (Negative) 08/08/22 11:35 Urine Bilirubin Neg (Negative) 08/08/22 11:35 Urine Urobilinogen Norm mg/dL (Negative) 08/08/22 11:35 Ur Leukocyte Esterase Negative (Negative) 08/08/22 11:35 Urine RBC 0-4 /hpf (0-2) H 08/08/22 11:35 Urine WBC None /hpf (0-5) 08/08/22 11:35 Ur Squamous Epith Cells 0-4 /hpf (0-5) H 08/08/22 11:35 Amorphous Sediment Not Reportable 08/08/22 11:35 Urine Bacteria Trace /hpf (NONE) 08/08/22 11:35 Coronavirus 229E (PCR) Not detected (NOT DETECT) 08/08/22 11:35 Human Metapneumovir PCR Not detected (NOT DETECT) 08/08/22 14:03 Influenza Type A Ag negative (Negative) 08/08/22 11:35 Influenza Type B Ag negative (Negative) 08/08/22 11:35 Entero/Rhino (PCR) Detected (NOT DETECT) A 08/08/22 14:03 SARS-CoV-2 (PCR) Not detected (NOT DETECT) 08/08/22 11:35 Vitals Last Vital Signs Temp 98.7 F 08/09/22 04:00 Pulse 80 08/09/22 07:40 Resp 18 08/09/22 08:36 BP 150/89 08/09/22 07:40 Pulse Ox 97 08/09/22 04:00 O2 Del Method 08/09/22 04:00 Discharge Plan Discharge Patient Disposition: Home Condition: Stable Prescriptions: New aspirin 81 mg Tablet,Delayed Release (Dr/Ec) 81 mg PO DAILY Qty: 90 0RF atorvastatin 40 mg Tablet 80 mg PO DAILY Qty: 60 0RF nitroglycerin 0.4 mg Tablet, Sublingual 0.4 mg sublingual Q5M PRN (Reason: Chest Pain) Qty: 10 0RF Lisinopril 40 mg PO DAILY Qty: 60 1RF levofloxacin 750 mg tablet 750 mg PO DAILY 7 Days Qty: 7 0RF albuterol sulfate 90 mcg/actuation HFA aerosol inhaler 2 inh inhalation Q8H PRN (Reason: shortness of breath or wheezing) Qty: 6.7 0RF Plavix 75 mg tablet 75 mg PO DAILY Qty: 60 0RF hydralazine 10 mg tablet 10 mg PO BID Qty: 60 0RF Continued metformin 500 mg tablet 500 mg PO BID lisinopril 30 mg Tablet 30 mg PO DAILY Changed amlodipine 5 mg tablet 10 mg PO DAILY Qty: 60 0RF Held furosemide 20 mg tablet 20 mg PO QAM Hold Instructions: Resume on 08/30/22. Discontinued carvedilol 6.25 mg tablet 6.25 mg PO BID baclofen 20 mg tablet 20 mg PO DAILY PRN (Reason: Pain) lovastatin 20 mg tablet 20 mg PO DAILY Discharge Orders: Discharge Order (Routine); Ordered 08/09/22 Ordered By: Leigha French Referrals: Meena Ndiaye MD [Primary Care Provider] - 08/17/22 2:00 pm Pat Alfonso MD [Physician] - 08/15/22 10:15 am Discharge Diet: Cardiac Discharge Activity: Limit activity as instructed Patient Instructions: Albuterol (By breathing), Aspirin (By mouth), Hydralazine (By mouth), Nitroglycerin, Rapid Release (By mouth), Atorvastatin (By mouth), Levofloxacin (By mouth), Clopidogrel (By mouth), Opioid Safety Activity Restrictions/Additional Instructions: You will need an elective angiogram to rule out coronary ischemia I am giving you referral to see Dr. Alfonso parking enforcement officer please call his clinic to make up an appointment Dr. 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 Do not lift more than 5 pounds avoid smoking and alcohol Discharge Attestations Time Spent in Discharge Care*: less than 30 min Quality Metrics Clinical Quality Measures [ No reported AMI, CVA or VTE this stay] Coding Level of Care Code Acute Chg FW DC note Diagnoses Chest pain R07.9 Pneumonia J18.9 Blurred vision H53.8
--- NOTE | 2022-08-09 11:43 | PM.MISC ---
Miscellaneous Note Purpose of Documentation: Work-related document Note: Mr. Tolentino who is a 66-year-old male is being advised to follow-up with cardiology for an angiogram. 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 Should you have any questions please do not hesitate to call hospitalist department of [facility].
[2022-08-09 11:58] VITALS: BP 137/84; PULSE 58; RESP 17; TEMP 36.8; O2SAT 93
--- NOTE | 2022-08-09 19:47 | NMCV_ITS ---
NM farrukh perf SPECT r/s* [id number] RemyModesto Age: 66 Gender: M : 1955 Exam Date: 08/09/2022 07:49 Ordering Phys: Leigha French MD Technologist: PRASHANTH Rebolledo Exam Location: [facility] Indications: CHEST PAIN STRESS TEST Please [facility] for [facility] IMAGE PROTOCOL Rest/Stress 1 Lexiscan Day Radiopharmaceutical Dose (mCi) Administration Site Administered by Rest: Tc-99m 10.8 IV PRASHANTH Dolan Sestamibi Stress:Tc-99m 32.9 IV PRASHANTH Dolan Sestamibi Rest: 09-Aug-2022 60 Discovery 630 Stress: 09-Aug-2022 30 Discovery 630 0.4mg Lexiscan. Images obtained in supine and prone position. SPECT RESULTS Technical Quality: Excellent Raw Data Analysis: Normal Image Corrections: No attenuation or motion correction applied Summed Stress Score: 1 Summed Rest Score: 3 Summed Difference Score: 0 PERFUSION FINDINGS Patchy areas of slightly decreased tracer uptake were noted in the anteroseptal and inferolateral regions. No significant reversibility was noted in these areas FUNCTIONAL RESULTS (calculated via Gated SPECT) Stress Image LV EF (%): 37 Stress EDV (mL):147 TID: 0.97 Stress ESV (mL):92 FUNCTIONAL FINDINGS: Segmental wall motion analysis revealed diffuse hypokinesia of the left ventricle IMPRESSIONS 1. Myocardial perfusion imaging revealing patchy areas of persistent decreased tracer uptake in the anteroseptal and inferolateral regions. 2. Diminished LV ejection fraction of 37%. 3. LV wall motion analysis revealing diffuse hypokinesia of the left ventricle. 4. Mildly dilated LV cavity with an end systolic volume of 92 ml. The above features may suggest a nonischemic form of cardiomyopathy. Clinical correlation is recommended. Compared to the study from 07/15/2018, the ejection fraction has decreased from 51% to 37 %. Dr Pat Alfonso MD [facility] (Electronically Signed) Final Date: 09 August 2022 10:06 S
== END 2022-08-09 13:20 | disposition home or self-care (01) ==
LOC: ER 16:15 → MEDSURG 19:02
PROVIDERS: Admitting Provider Internal Medicine; Emergency Provider Emergency Medicine; PCP Internal Medicine; Visit Provider Internal Medicine
DX: R07.9 Chest pain, unspecified (principal); J18.9 Pneumonia, unspecified organism; H53.8 Other visual disturbances; I65.23 Occlusion and stenosis of bilateral carotid arteries; I44.7 Left bundle-branch block, unspecified; Z87.891 Personal history of nicotine dependence; I11.0 Hypertensive heart disease with heart failure; I50.9 Heart failure, unspecified
CPT/HCPCS: 36415; 36416; 70450; 71045; 71275; 78452; 80048; 80053; 81001; 82607; 82962; 83036; 83690; 83735; 83880; 84100; 84443; 84484; 85025; 85378; 87635; 87801; 87804; 93005; 93017; 93306; 93880; 96372; 96374; 99285; A9500; G0378; J0696; J1650; J2785; Q0144; Q9967

== ENCOUNTER 2022-09-20 10:54 | Outpatient (CLI) | payer MEDICARE, SELFPAY ==
--- NOTE | 2022-09-20 12:15 | USCV_ITS ---
[place] Alberto Age: 67 Gender: M : 1955 Exam Date: 09/20/2022 11:41 Ordering Phys: Pat Alfonso MD ([email or web address]) Technologist: CT Exam Location: [facility] [place] Indication: claudication Risk Factors: Previous Vascular Surgery: RIGHT LEFT BP: 157.0 / 80.00 BP: 162.0/ 87.00 0 0 Waveform Velocity (cm/s) Velocity (cm/s) Waveform Biphasic 95.4 Iliac Prox 69.1 Biphasic Biphasic 90.6 Iliac Mid 83.4 Biphasic Biphasic 85.8 Iliac Distal 81.6 Biphasic Monophasic 42.4 CAR REPAIR SUPERVISOR 69.8 Biphasic SFA Prox 75.3 Biphasic Biphasic 177.5 SFA Dist Monophasic POP Monophasic 23.0 28.5 DRAPERY EXAMINER 20.0 Monophasic Monophasic 28.6 DPA 32.1 Monophasic 0.7 PETERSON 0.6 FINDINGS bilataral sfa's are occluded, rt cryptanalyst is occluded, low bi's, monophasic tibials Mild diffuse plaque in the iliac arteries bilaterally. Moderate to heavy plaques in the femoral and popliteal arteries bilaterally. No Doppler flow signals in the mid and distal SFA bilaterally and the posterior tibial artery on the right side Resting PETERSON of 0.7 on the right and 0.6 on the left CONCLUSIONS 1. 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 2. Moderate to heavy plaques in the femoral and popliteal arteries bilaterally. 3. Possible occlusion of the posttibial artery on the right side 4. Diminished resting ABIs bilaterally suggesting moderate peripheral artery disease. Dr Pat Alfonso MD [facility] (Electronically Signed) Final Date: 21 September 2022 00:36 S
== END 2022-09-20 10:55 | disposition home or self-care (01) ==
LOC: RAD 10:57
PROVIDERS: PCP Internal Medicine; Visit Provider Internal Medicine Cardiovascular Disease
DX: I73.9 Peripheral vascular disease, unspecified (principal); R07.89 Other chest pain; I42.9 Cardiomyopathy, unspecified; I70.92 Chronic total occlusion of artery of the extremities
CPT/HCPCS: 93925; 99204

== ENCOUNTER → 2022-10-13 08:28 | Outpatient (BNVA) | payer MEDICARE, SELFPAY | PROVIDERS: PCP Internal Medicine; Visit Provider Nurse Practitioner Family | DX: I73.9 Peripheral vascular disease, unspecified (principal) | CPT/HCPCS: 99214 ==

== ENCOUNTER 2022-10-23 06:17 | Outpatient (CLI) | payer MEDICARE, SELFPAY ==
--- NOTE | 2022-10-23 06:30 | CT_ITS ---
WS: [id number] CT ANGIOGRAPHY OF THE ABDOMINAL AORTA WITH RUNOFF TO THE ANKLES HISTORY: claudication, abnormal PETERSON TECHNIQUE: Arterial injection is performed during imaging to evaluate the aorta and runoff vessels to the ankles. MIP and volume rendering imaging has also been performed. All images are reviewed. All C T scans at [facility] use at least one of these dose optimization techniques: automated exposu re control; mA and/or kV adjustment per patient size (includes targeted exams where dose is matched t o clinical indication); or iterative reconstruction. Contrast: Omnipaque 350; 95 mL IV. DLP: 727.59 mGy.cm COMPARISON: 09/20/2022 Lung bases are clear. Right-sided Bochdalek hernia. Mild cardiomegaly. Small hiatal hernia. Abdominal aorta: Good enhancement of the abdominal aorta. Moderate calcified plaque with no aneurysm or stenosis. Normal celiac axis. Small amount of plaque at the origin of the SMA with no stenosis. Mi ld atherosclerotic plaque origin of the renal arteries with no high-grade stenosis. Single renal fermin corey are identified. JUAN is still patent. RIGHT lower extremity arterial system: Diffuse atherosclerotic plaque in the common, internal and ext ernal iliac arteries. Moderate stenosis involving the origin of the RIGHT internal iliac artery. Incr easing stenosis and calcified plaque at the femoral artery. Complete occlusion involving the origin o f the RIGHT SFA. Deep profunda is patent. Completely occluded SFA at Evelio's canal. There is reconst itution at Evelio's canal. Mild atherosclerotic plaque with narrowing of the popliteal artery. Very s mall caliber three-vessel runoff to the ankles. Posterior tibial artery does not enhance beyond the p roximal tibia. Very small caliber peroneal and anterior tibial arteries. LEFT lower extremity to system: Significant atherosclerotic plaque with stenosis 50-60% in the common iliac artery. Mild stenosis internal iliac artery. 7 mm aneurysm external iliac artery. Additional s mall 5 mm aneurysm versus pseudoaneurysm from the external iliac artery. Increasing calcified plaque with 50-60% stenosis origin of the SFA. SFA is completely occluded in the proximal SFA heavy calcifie d plaque throughout the SFA. Reconstitution near Evelio's canal. Popliteal artery is patent. Small ca liber runoff to the mid tibia. Very small caliber peroneal artery may be occluded. Liver, spleen, pancreas and adrenal glands are negative. Prior cholecystectomy. Bilateral renal cysts . No mass or obstruction. No adenopathy or ascites. Extensive than numerous diverticula throughout th e sigmoid colon. No acute diverticulitis. Prostate enlargement. CT/CT angio abd aorta runof [id number] IMPRESSION: 1. Complete occlusion origin RIGHT SFA with reconstitution at Evelio's canal. 2. Moderate stenosis origin RIGHT internal iliac artery. 3. Small caliber three-vessel runoff to the RIGHT ankle. Very limited enhancem ent of the posterior RIGHT tibial artery. 4. Complete occlusion proximal LEFT SFA with reconstitution at Evelio's canal. 5. 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 Largest measures approximately 7 mm. 6. Origin LEFT SFA stenosis 50-60%. 7. Very small caliber and possibly occluded LEFT peroneal artery. 8. No abdominal aortic aneurysm.
[2022-10-23 06:56] LABS: Blood Urea Nitrogen 12 mg/dL (8-23); Glomerular Filtration Rate 83.9 mL/min (90-130)
[2022-10-23] MEDS: iohexol 350 mg/mL 500 mL Btl (per mL) IV (07:09)
== END 2022-10-23 06:18 | disposition home or self-care (01) ==
LOC: RAD 06:18
PROVIDERS: PCP Internal Medicine; Visit Provider Nurse Practitioner Family
DX: I73.9 Peripheral vascular disease, unspecified (principal); I70.8 Atherosclerosis of other arteries
CPT/HCPCS: 75635; 82565; 84520; Q9967

== ENCOUNTER 2022-11-10 05:51 | Outpatient (CLI) | payer MEDICARE, SELFPAY ==
[2022-11-10] VITALS (57 sets, daily range): BP systolic 127–180; BP diastolic 74–99; PULSE 49–77; RESP 9–29; TEMP 36.4–37.2; O2SAT 94–98; BMI 30.8
--- NOTE | 2022-11-10 06:00 | XACV_ITS ---
Ht: 178 cm Wt: 98 kg BSA: 2.22 m2 Any Known Allergies: No known allergies Gender: Male : 1955 Exam Type: Invasive Peripheral Vascular Procedure(s): Procedure Description: Peripheral Cath Diagnostic Procedure Procedure Description: Abdominal aortic angiography Procedure Description: Lower extremities' angiography Procedure Description: Peripheral vascular Intervention Procedure Description: PV Balloon Procedure Description: PV Atherectomy Exam Priority: Routine Abdominal Diagnostic Findings Distal abdominal aorta: Patent, mildly aneurysmal. Lower Extremity Diagnostic Findings INDICATION: Severe Lifestyle limiting claudication. Left lower extremity findings:Left common iliac artery: Patent. Left external iliac artery: Patent. Left common femoral artery: Patent. Left SFA : Proximal portion has 50% stenosis. Mid segment SFA is totally occluded. Fills via collaterals in the distal segment. Left popliteal artery: Patent . Left TP segment: Patent . Left posterior tibial artery: Patent. Left peroneal artery: Patent. Left anterior tibial artery: Patent . Right lower extremity findings:Right common iliac artery: Patent. Right external iliac artery: Patent. Right common femoral artery: Patent. Right SFA: Totally occluded occluded. Strong collaterals reconstitute vessel distally. Right popliteal artery: Patent. Below the knee patient has two-vessel runoff. However limited visualization . Left Proximal Superficial Femoral Artery: 50% stenosis. Left Proximal Superficial Femoral Artery: 50% stenosis, ostial. Left Mid-longitudinal Superficial Femoral Artery:100% stenosis. Lower Extremity Interventional Findings Procedure detail: Short 6 [place] sheath was switched to 45 cm sheath that was put up and over to the left external iliac artery. Using Glidewire and seeker support catheter, we crossed totally occluded SFA and was put in distal vessel. Through the seeker catheter Glidewire was switched to Viper wire. Multiple runs of orbital arthrectomy were performed. This was followed by balloon angioplasty with 6.0 x 200mm drug-coated balloon . Residual stenosis was seen. We used a 6.0 x 250 mm balloon to dilate the vessel again. At this time excellent expansion of the vessel was seen and flow was brisk. Patient left Social Services Technician in a stable condition.. Left Proximal Superficial Femoral Artery: 50% stenosis treated with Lutonix 6.0 X 220mm. Left Mid-longitudinal Superficial Femoral Artery: 100% stenosis treated with AB Crosby 35 GUEST SERVICES COORDINATOR Catheter [id number]. Conclusions Totally occluded mid left SFA s/p successful revascularization with orbital arthrectomy and balloon angioplasty. Totally occluded right SFA. Based on symptoms, will need staged revascularization.. Left Proximal Superficial Femoral Artery was treated with Balloon. Left Mid-longitudinal Superficial Femoral Artery was treated with Balloon. Recommendations Dual antiplatelet therapy with aspirin and Plavix for at least 3 to 6-month. High intensity statin therapy. Outpatient cardiology follow-up for 1-2 weeks. Hemodynamic Data Phase:Rest AO : 138.0 / 76.0 ( 101.0 ) @ 8:34:00 AM 132.0 / 66.0 ( 91.0 ) @ 8:51:00 AM Access Site Site: Right Femoral artery Sheath Size: 6 Fr Hemost... Method: Suture Hemost... Success: Successful Procedure Details Findings Procedure Consent Obtained. Admit Source: Out Patient. Pre-Procedure Time Out. Identified patient by full name and date of as verbalized by the patient/guarantor. Does the consent match the physician's order: Yes. Accurate & Complete Informed Consent: Yes. Inpatient/Outpatient History & Physical on Chart: Yes. If H&P is completed, is and addenduem needed: No; If yes, is the addendum complete: N/A. Visualize and Verify Site with Patient/Guarantor: N/A. Relevant Radiology Images available: Yes. The risks, benefits, and alternatives of sedation and/or procedure were discussed by physician. The patient agrees to continue. Procedure started. Current diagnosis:Lifestyle limiting claudication. PERRLA. 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 Lungs clear x 5 lobes. IV Site on Arrival: 20 gauge in the left anticubital. IV Fluids: 0.9% NaCl at 75ml/hr. 0 mL infused prior to fence laborer. Pre Procedural Pulses: bilateral posterior tibial was Doppled. Pre Procedural Pulses: bilateral dorsalis pedis was Doppled. Oxygen started at 2liters/min via nasal canula. bilateral groins was prepped with chloroprep then draped in the usual sterile fashion. Physician notified. Baseline sample Acquired. HR: 55 BPM. Physician arrived. Physician scrubbed in. Time out performed with cath team. Lidocaine 1% infiltrated to the right groin. Arterial access obtained with micropuncture set. 5Fr UF catheter advanced over standard wire , positioned above bifurcation of iliacs. Abdominal aortogram performed in AP @ 10 mL/sec for a total of 30 mL. Glidewire advanced through UF catheter, seated on left SFA. UF catheter out. Short 6fr sheath exchanged for 6fr 45cm flexor sheath over the glidewire. Side port of sheath attached to Normal Saline flush at KVO to maintain patency. Seeker catheter in over glidewire. Seeker parked in popliteal. Glidewire out. Hand injection through seeker to visual below the knee, DSA performed. Viper wire in through seeker catheter, seated in peroneal trunk. Seeker catheter out. 1.5 mm Orbital atherectomy device advanced over viperwire. Atherectomy run performed of proximal left SFA. Atherectomy performed to mid left SFA. Atherectomy performed of distal left SFA. Atherectomy device out over viperwire. Seeker catheter in over viperwire. Viperwire out. Glidewire in through seeker catheter. Seeker catheter out. Inflation number : 1 A Lutonix 6.0 X 220 was prepped and advanced across the proximal left SFA , then inflated to 6 MARISELA for 2:00 seconds. Inflation number: 1 The Lutonix 6.0 X 220 was reinflated across the Ostial Superficial Femoral, Left, to 6 MARISELA for 1:01 seconds. Balloon out over wire. Angiography performed, checking results. Balloon inserted over the wire to the superficial femoral. Inflation number : 1 A AB Crosby 35 GUEST SERVICES COORDINATOR Catheter [id number] was prepped and advanced across the Mid Superficial Femoral, Left , then inflated to 6 MARISELA for 1:30 seconds. Balloon out over glidewire. Angiography performed, Checking results. 6Fr flexor sheath exchanged for 6fr short sheath over the glidewire. Right common femoral selected and arteriogram with runoff performed @ 10 mL/sec for a total of 30 mL. Post Procedure: Pulses reassessed and unchanged. PERRLA. 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 No VTE prophylaxis required. A Suture was successful obtaining hemostatsis at the Right Femoral artery insertion site. Arterial sheath flushed and connected to tranducer and pressure bag with heparinized saline. Sheath(s) sutured into position with 2-0 silk and sterile 4x4's and Op-site applied over the site. No oozing or signs and symptoms of hematoma noted. PTT drawn from sheath and sent to lab. Post-op diagnosis: Total Occlusion of mid left SFA , status post orbital atherectomy and balloon angioplasty of left sfa. Medication's Wasted: Heparin = 1000 unit. Medication's Wasted: Other = Versed 1 mg. Total IV fluids: 98 mL. Complications: None. Estimated blood loss: 5mL-10mL. Responsiveness - Normal response to verbal stimuli; alert and oriented, PERRLA. Airway - Unaffected, no intervention required; spontaneous ventilation. Circulation: W/N/L, pulses unchanged. Nausea/Vomiting: No. Procedure completed. Patient transferred by bed to 1st floor. Vital chart was stopped. Procedure Medications Start: 7:23 AM Stop: 7:23 AM Medication: Versed Amount: 1 mg Route: I.V. Start: 7:24 AM Stop: 7:24 AM Medication: Fentanyl Amount: 50 mcg Route: I.V. Start: 7:29 AM Stop: 7:29 AM Medication: Versed Amount: 1 mg Route: I.V. Start: 7:40 AM Stop: 7:40 AM Medication: Versed Amount: 1 mg Route: I.V. Start: 7:53 AM Stop: 7:53 AM Medication: Heparin Amount: 6000 units Route: I.V. Start: 7:54 AM Stop: 7:54 AM Medication: Versed Amount: 1 mg Route: I.V. Start: 7:54 AM Stop: 7:54 AM Medication: Fentanyl Amount: 50 mcg Route: I.V. Start: 8:08 AM Stop: 8:08 AM Medication: Versed Amount: 1 mg Route: I.V. Start: 8:08 AM Stop: 8:08 AM Medication: Heparin Amount: 1000 units Route: I.V. Start: 8:15 AM Stop: 8:15 AM Medication: Heparin Amount: 1000 units Route: I.V. Start: 8:29 AM Stop: 8:29 AM Medication: Plavix Amount: 600 mg Route: P.O. I, the attending physician, have reviewed and verified all procedure medications. Yes, all medications given per verbal order History/Risk Factors Hypertension: No Dyslipidemia: Yes Peripheral Arterial Disease (PAD): Yes Obesity: No Renal Disease: No Tobacco Use: Former Prior Interventions PCI: No CABG: No Valve Surgery: No Report Signatures Finalized by Errol Muir MD on 11/12/2022 09:49 AM
[2022-11-10 06:40] LABS: Basophils % 0.2 %; Eosinophils # 0.1 10^3/uL (0.0-0.8); Eosinophils % 2.1 %; Hematocrit 45.3 % (42.0-52.0); Hemoglobin 14.9 g/dL (11.7-16.6); Lymphocytes # 1.5 10^3/uL (0.8-4.8); Lymphocytes % 24.3 %; Mean Corpuscular HGB Conc 32.9 g/dL (30.0-36.0); Mean Corpuscular Hemoglobin 31.1 pg (28.0-34.0); Mean Corpuscular Volume 94.6 fl (80-94); Mean Platelet Volume 10.5 fL (7.4-10.4); Monocytes # 0.6 10^3/uL (0.2-0.9); Monocytes % 9.8 %; Neutrophils # 4.02 10^3/uL (1.8-7.7); Neutrophils % 63.3 %; Nucleated Red Blood Cells % 0 %; Platelet Count 142 10^3/cmm (130-400); Red Blood Count 4.79 10^6/uL (4.1-5.3); Red Cell Distribution Width 12.9 % (12.1-15.1); White Blood Count 6.3 10^3/uL (4.0-10.0)
[2022-11-10 06:54] LABS: Anion Gap 12.1 (5-19); Blood Urea Nitrogen 10 mg/dL (8-23); Calcium 8.7 mg/dL (8.5-10.5); Carbon Dioxide 27 mmol/L (22-29); Chloride 105 mmol/L (98-107); Glomerular Filtration Rate 112.1 mL/min (90-130); Glucose 129 mg/dL (65-115); Osmolality Calculated 291 mOsm/kg (285-295); Potassium 4.1 mmol/L (3.5-5.1); Sodium 140 mmol/L (136-145)
[2022-11-10] MEDS: diphenhydrAMINE 50 mg Capsule PO (07:01)
--- NOTE | 2022-11-10 07:21 | P.HPUD_ITS ---
Surgery/Procedure H&P Update DATE OF PROCEDURE: November 10, 2022 DATE H&P PERFORMED: 11/10/22 H&P UPDATE INFORMATION: I have reviewed H&P completed within last 30 days, I have examined patient prior to procedure and No changes to prior documentation PREOP DIAGNOSIS: Lifestyle limiting claudication PRIMARY INDICATION FOR PROCEDURE: Lifestyle limiting claudication PLANNED PROCEDURE: Operation Date: 11/10/22 07:00 Proposed Procedures p peripheral 32059, I73.9(Not Applicable) - Errol Muir M.D Possible intervention PATIENT REASSESSED PRIOR TO SEDATION, WITH NO CHANGE NOTED: Yes PHYSICAL EXAM: alert, oriented x 3, clear to auscultation bilaterally and regula r rate & rhythm AIRWAY EVAL/ANESTHESIA PLAN: normal airway, ASA III, Local Anesthesia, Risks, benefits & alternatives of sedation and/or procedure discussed and Patient agrees to continue as planned ADDITIONAL INFORMATION: Moderate sedation
[2022-11-10 11:25] LABS: Partial Thromboplastin Time 51.5 SECONDS (23.9-36.7)
[2022-11-10 12:57] LABS: Partial Thromboplastin Time 27.9 SECONDS (23.9-36.7)
--- NOTE | 2022-11-10 14:06 | PC.NURSE ---
6 belarusian sheath successfully removed at 1358. Gauze and suresite dressing applied. No hematoma noted. Procedure performed with ICU nurses Jodi Subramanian RN and SN Darshana.
[2022-11-10] MEDS: baclofen 10 mg Tablet 20 MG PO (16:13)
[2022-11-10] MEDS: carvedilol 12.5 mg Tablet PO (17:18)
[2022-11-10] MEDS: lisinopril 10 mg Tablet 30 MG PO (17:18)
[2022-11-10] MEDS: atorvastatin 40 mg Tablet 20 MG PO (20:44)
[2022-11-11 03:26] VITALS: BP 156/90; PULSE 54; RESP 17; TEMP 36.6; O2SAT 95
[2022-11-11 03:39] VITALS: PULSE 70
[2022-11-11] MEDS: FUROsemide 20 mg Tablet PO (05:15)
[2022-11-11 05:26] LABS: Basophils % 0.3 %; Eosinophils # 0.1 10^3/uL (0.0-0.8); Eosinophils % 1.7 %; Hematocrit 43.2 % (42.0-52.0); Hemoglobin 14.6 g/dL (11.7-16.6); Lymphocytes # 1.3 10^3/uL (0.8-4.8); Lymphocytes % 17.2 %; Mean Corpuscular HGB Conc 33.8 g/dL (30.0-36.0); Mean Corpuscular Hemoglobin 31.4 pg (28.0-34.0); Mean Corpuscular Volume 92.9 fl (80-94); Mean Platelet Volume 10.8 fL (7.4-10.4); Monocytes # 0.7 10^3/uL (0.2-0.9); Monocytes % 8.6 %; Neutrophils # 5.41 10^3/uL (1.8-7.7); Neutrophils % 71.9 %; Nucleated Red Blood Cells % 0 %; Platelet Count 135 10^3/cmm (130-400); Red Blood Count 4.65 10^6/uL (4.1-5.3); Red Cell Distribution Width 12.9 % (12.1-15.1); White Blood Count 7.5 10^3/uL (4.0-10.0)
[2022-11-11 05:43] LABS: Anion Gap 12.2 (5-19); Blood Urea Nitrogen 9 mg/dL (8-23); Calcium 8.3 mg/dL (8.5-10.5); Carbon Dioxide 24 mmol/L (22-29); Chloride 106 mmol/L (98-107); Glucose 123 mg/dL (65-115); Osmolality Calculated 286 mOsm/kg (285-295); Potassium 4.2 mmol/L (3.5-5.1); Sodium 138 mmol/L (136-145)
--- NOTE | 2022-11-11 06:53 | PM.DCS ---
Discharge Providers Date of Admission: 11/10/2022 Date of Discharge: November 11, 2022 Attending Provider at Admission: Errol Muir Attending Provider at Discharge: Errol Muir M.D Primary Care Provider: Meena Ndiaye MD Reason for Visit Reason for Visit: Severe lifestyle limiting claudication Brief History: 67-year-old man with past medical history of hypertension has been having severe bilateral lifestyle limiting claudication. We will plan for peripheral angiogram and possible percutaneous intervention. Hospital Course Hospital Course Patient underwent peripheral angiogram that showed totally occluded left SFA. It underwent successful revascularization with orbital arthrectomy and balloon angioplasty. Patient is occluded right SFA as well. Will need staged revascularization if he has significant symptoms. Patient stayed overnight and was stable. Discharged home in a stable condition. Physical Exam Narrative: GENERAL: Patient is alert, awake and oriented x3. [] NECK: No jugular vein distension. [] HEENT: No cyanosis. No icterus. No pallor. [] HEART: Regular S1 and S2. No murmur, rub or gallop. [] LUNGS: Clear to auscultate bilaterally. [] CENTRAL NERVOUS SYSTEM: Grossly nonfocal. [] EXTREMITIES: Lower extremities with 1+ edema bilaterally. Patient has palpable pulses on the left lower extremity. Discharge Data Studies Completed and Pending Pending at discharge Category Date Time Status HOME HEALTH CARE CASE MANAGER request for service Routine Exams 11/10/22 06:00 Taken Laboratory Results WBC 7.5 10^3/uL (4.0-10.0) 11/11/22 04:33 RBC 4.65 10^6/uL (4.1-5.3) 11/11/22 04:33 Hgb 14.6 g/dL (11.7-16.6) 11/11/22 04:33 Hct 43.2 % (42.0-52.0) 11/11/22 04:33 MCV 92.9 fl (80-94) 11/11/22 04:33 MCH 31.4 pg (28.0-34.0) 11/11/22 04:33 MCHC 33.8 g/dL (30.0-36.0) 11/11/22 04:33 RDW 12.9 % (12.1-15.1) 11/11/22 04:33 Plt Count 135 10^3/cmm (130-400) 11/11/22 04:33 MPV 10.8 fL (7.4-10.4) H 11/11/22 04:33 Neut % (Auto) 71.9 % 11/11/22 04:33 Lymph % (Auto) 17.2 % 11/11/22 04:33 [place] % (Auto) 8.6 % 11/11/22 04:33 Eos % (Auto) 1.7 % 11/11/22 04:33 Baso % (Auto) 0.3 % 11/11/22 04:33 Neut # (Auto) 5.41 10^3/uL (1.8-7.7) 11/11/22 04:33 Lymph # (Auto) 1.3 10^3/uL (0.8-4.8) 11/11/22 04:33 [place] # (Auto) 0.7 10^3/uL (0.2-0.9) 11/11/22 04:33 Eos # (Auto) 0.1 10^3/uL (0.0-0.8) 11/11/22 04:33 Baso # (Auto) 0.0 10^3/uL (0.0-0.1) 11/11/22 04:33 Nucleated RBC % (auto) 0 % 11/11/22 04:33 Nucleated RBCs # 0.0 /100WBC 11/11/22 04:33 APTT 27.9 SECONDS (23.9-36.7) 11/10/22 12:40 Sodium 138 mmol/L (136-145) 11/11/22 04:33 Potassium 4.2 mmol/L (3.5-5.1) 11/11/22 04:33 Chloride 106 mmol/L (98-107) 11/11/22 04:33 Carbon Dioxide 24 mmol/L (22-29) 11/11/22 04:33 Anion Gap 12.2 (5-19) 11/11/22 04:33 BUN 9 mg/dL (8-23) 11/11/22 04:33 Creatinine 0.6 mg/dL (0.7-1.2) L 11/11/22 04:33 GFR Calculation 134.0 mL/min (90-130) H 11/11/22 04:33 Glucose 123 mg/dL (65-115) H 11/11/22 04:33 Calculated Osmolality 286 mOsm/kg (285-295) 11/11/22 04:33 Calcium 8.3 mg/dL (8.5-10.5) L 11/11/22 04:33 Vitals Last Vital Signs Temp 97.9 F 11/11/22 03:26 Pulse 70 11/11/22 03:39 Resp 17 11/11/22 03:26 BP 156/90 11/11/22 03:26 Pulse Ox 95 11/11/22 03:26 O2 Del Method 11/11/22 03:26 Discharge Plan Discharge Patient Disposition: Home Prescriptions: New clopidogrel 75 mg tablet 75 mg PO DAILY Qty: 90 1RF Continued furosemide 20 mg tablet 20 mg PO QAM Hold Instructions: Resume on 08/30/22. cilostazol 50 mg tablet 50 mg PO BID Qty: 180 2RF carvedilol 12.5 mg tablet 12.5 mg PO BID lovastatin 20 mg tablet 20 mg PO BEDTIME amlodipine 5 mg tablet 5 mg PO DAILY Patient Comments: pt is only taking 5mg daily baclofen 20 mg tablet 20 mg PO TID PRN (Reason: Muscle Spasm) aspirin 81 mg Tablet,Delayed Release (Dr/Ec) 81 mg PO DAILY Qty: 90 0RF nitroglycerin 0.4 mg Tablet, Sublingual 0.4 mg sublingual Q5M PRN (Reason: Chest Pain) Qty: 10 0RF albuterol sulfate 90 mcg/actuation HFA aerosol inhaler 2 inh inhalation Q8H PRN (Reason: shortness of breath or wheezing) Qty: 6.7 0RF lisinopril 30 mg tablet 30 mg PO BID fluticasone propionate 50 mcg/actuation [place],Suspension 2 spray INTRANASAL DAILY Rx Instructions: administer into each nostril Held metformin 500 mg tablet 500 mg PO BID Hold Instructions: Resume on 11/13/22. Discharge Orders: Discharge Order (Routine); Ordered 11/11/22 Ordered By: Errol Muir Referrals: Racheal Mccracken FNP [Nurse Practitioner] - 11/22/22 9:15 am Diet: Cardiac and Diabetic Activity: Increase activity as tolerated Patient Instructions: Clopidogrel (By mouth) (Plavix), Peripheral Vascular Angioplasty (DC), Post Angiogram Home Care Instructions Discharge Date/Time: 11/11/22 09:15 Discharge Attestations Time Spent in Discharge Care*: less than 30 min Quality Metrics Clinical Quality Measures [ No reported AMI, CVA or VTE this stay] Coding Level of Care Code Acute Code for Chg Fwd Diagnoses
[2022-11-11 07:47] VITALS: BP 156/90; PULSE 61; RESP 15; TEMP 36.8; O2SAT 96
[2022-11-11] MEDS: aspirin 81 mg EC Tablet PO (08:29)
[2022-11-11] MEDS: amlodipine 5 mg Tablet PO (08:29)
[2022-11-11] MEDS: carvedilol 12.5 mg Tablet PO (08:29)
[2022-11-11] MEDS: lisinopril 10 mg Tablet 30 MG PO (08:29)
[2022-11-11] MEDS: clopidogrel 75 mg Tablet PO (08:29)
== END 2022-11-11 09:15 | disposition home or self-care (01) ==
LOC: CCL 05:53 → CSU 08:47
PROVIDERS: PCP Internal Medicine; Visit Provider Internal Medicine
DX: I70.223 Atherosclerosis of native arteries of extremities with rest pain, bilateral legs (principal); I77.1 Stricture of artery; Z79.82 Long term (current) use of aspirin; Z86.718 Personal history of other venous thrombosis and embolism; I50.9 Heart failure, unspecified; E78.2 Mixed hyperlipidemia; Z87.891 Personal history of nicotine dependence
CPT/HCPCS: 36415; 37224; 37225; 75625; 75716; 80048; 85025; 85730; 96361; 96365; 96376; 99152; 99153; C1724; C1725; C1769; C1887; C1894; C2623; J1644; J2250; J3010; J3490; Q0163; Q9967

== ENCOUNTER → 2022-11-22 09:12 | Outpatient (BNVA) | payer MEDICARE, SELFPAY | PROVIDERS: PCP Internal Medicine; Visit Provider Nurse Practitioner Family | DX: I73.9 Peripheral vascular disease, unspecified (principal) | CPT/HCPCS: 36415; 80048; 99214 ==